=== PATIENT | male | born 1980 | race Caucasian/White ===

== ENCOUNTER 2019-08-08 13:14 | Inpatient (IN) ==
[2019-08-08] MEDS ORDERED: ENOXAPARIN 100 MG/ML SYRINGE SUBCUT STA (13:53)
[2019-08-08] MEDS ORDERED: NITROGLYCERIN SL 0.4 MG TABLET SL PRN (13:53)
[2019-08-08] MEDS ORDERED: MORPHINE 4 MG/1 ML VIAL IV STA (13:53)
[2019-08-08] MEDS ORDERED: ASPIRIN 325 MG TABLET PO STA (13:53)
[2019-08-08] MEDS ORDERED: DILTIAZEM 50 MG/10 ML VIAL IV STA (13:54)
[2019-08-08 14:00] LABS: Basophils # 0.1 10*3/uL (0.0-0.2); Eosinophils # 0.3 10*3/uL (0.0-0.87); Eosinophils % 2.8 % (0.00-10.9); Hematocrit 36.6 VOL% (42.0-52.0); Hemoglobin 12.3 GM/DL (14.0-18.0); Immature Granulocytes % 0.3 %; Immature Granulocytes Absolute 0.03 #; Lymphocytes # 1.4 10*3/uL (1.4-4.0); Lymphocytes % 14.5 % (21.2-54.2); Mean Corpuscular HGB Conc 33.6 GM/DL (32-36); Mean Corpuscular Volume 90.1 FL (87-102); Mean Platelet Volume 11.3 FL (9.6-12.0); Neutrophils % 74.4 % (38.7-73.9); Platelet Count 251 T/CUMM (130-400); Red Blood Count 4.06 MC/CUMM (3.8-5.5); Red Cell Distribution Width 13.2 % (9.3-17.3); White Blood Count 9.3 T/CUMM (4-12)
[2019-08-08 14:11] LABS: Calcium 8.1 MG/DL (8.5-10.1); Osmolality,Calculated 280.4 MOS/KG (273-304)
[2019-08-08 14:25] LABS: INR 1.1; PT Patient Result 11.2 SECS (9.8-11.9); Partial Thromboplastin Time 27.4 SECS (23.9-33.8)
[2019-08-08 15:33] LABS: Barbiturates Screen,Urine Negative (Negative); Benzodiazepines Screen,Urine Negative (Negative); Cannabinoid Screen,Urine Negative (Negative); Opiate Screen,Urine Negative (Negative); Phencyclidine Screen,Urine Negative (Negative)
[2019-08-08] MEDS ORDERED: ACETAMINOPHEN 325 MG TABLET PO PRN (15:44)
[2019-08-08] MEDS ORDERED: ONDANSETRON 4 MG/2 ML VIAL IV PRN (15:44)
[2019-08-08] MEDS ORDERED: DEXTROSE 10% 250 ML BAG IV PRN (15:44)
[2019-08-08] MEDS ORDERED: GLUCAGON 1 MG VIAL IM PRN (15:44)
[2019-08-08] MEDS ORDERED: MAGNESIUM SULF RIDER 2 GM in PREMIX 1 EACH IV PRN (15:47)
[2019-08-08] MEDS ORDERED: MAGNESIUM SULF RIDER 4 GM in PREMIX 1 EACH IV PRN (15:47)
[2019-08-08 16:59] LABS: Apearance,Urine CLEAR (Clear); Bilirubin,Urine Negative (Negative); Blood, Urine Negative (Negative); Glucose,Urine (UA) Negative (Negative); Hyaline Casts,Urine 11 /LPF (0-3); Ketones,Urine Negative (Negative); Mucus,Urine Moderate /LPF (Occasional); Nitrite,Urine Negative (Negative); Protein,Urine 30 MG/DL; RBC,Urine <1 /HPF (0-4); Squamous Epithelial Cell,Urine Occasional /HPF (0-10); WBC,Urine 4 /HPF (0-6)
[2019-08-08 17:00] LABS: Urine Color Yellow (Yellow)
[2019-08-08] MEDS ORDERED: MORPHINE 4 MG/1 ML VIAL IV PRN (20:44)
[2019-08-08] MEDS: METOPROLOL TARTRATE 25 MG TABLET PO SCH (20:54)
[2019-08-09 05:37] LABS: Basophils # 0.1 10*3/uL (0.0-0.2); Basophils % 0.8 % (0.0-0.8); Eosinophils # 0.3 10*3/uL (0.0-0.87); Eosinophils % 3.5 % (0.00-10.9); Hematocrit 38.5 VOL% (42.0-52.0); Hemoglobin 12.8 GM/DL (14.0-18.0); Immature Granulocytes % 0.3 %; Immature Granulocytes Absolute 0.03 #; Lymphocytes % 21.6 % (21.2-54.2); Mean Corpuscular HGB Conc 33.2 GM/DL (32-36); Mean Corpuscular Volume 88.9 FL (87-102); Mean Platelet Volume 11.8 FL (9.6-12.0); Monocytes % 8.5 % (1.7-12.7); Neutrophils % 65.3 % (38.7-73.9); Platelet Count 221 T/CUMM (130-400); Red Blood Count 4.33 MC/CUMM (3.8-5.5); Red Cell Distribution Width 13.3 % (9.3-17.3)
[2019-08-09 06:28] LABS: Calcium 8.3 MG/DL (8.5-10.1); Osmolality,Calculated 275.7 MOS/KG (273-304); Risk Ratio 2.23; VLDL CHOLESTEROL 9.2 MG/DL
[2019-08-09] MEDS: METOPROLOL TARTRATE 25 MG TABLET PO SCH ×2 (09:38→20:43)
[2019-08-09] MEDS: ASPIRIN EC 81 MG TABLET PO SCH (09:47)
[2019-08-09] MEDS: PANTOPRAZOLE 40 MG TABLET PO SCH (09:47)
[2019-08-09] MEDS: ENOXAPARIN 80 MG/0.8 ML SYRINGE SUBCUT SCH ×2 (09:48→20:43)
[2019-08-09] MEDS: FUROSEMIDE 40 MG/4 ML VIAL IV SCH (09:48)
[2019-08-09] MEDS: DIGOXIN 0.25 MG TABLET PO SCH (13:41)
[2019-08-09] MEDS ORDERED: DOCOSANOL 10% CREAM 2 GM TUBE TOP PRN (17:30)
[2019-08-09] MEDS: ATORVASTATIN 80 MG TABLET PO SCH (20:43)
[2019-08-09] MEDS ORDERED: ROSUVASTATIN 20 MG TABLET PO SCH (21:00)
[2019-08-10 07:59] LABS: Basophils # 0.1 10*3/uL (0.0-0.2); Basophils % 0.9 % (0.0-0.8); Eosinophils # 0.3 10*3/uL (0.0-0.87); Eosinophils % 2.8 % (0.00-10.9); Hematocrit 40.6 VOL% (42.0-52.0); Hemoglobin 13.4 GM/DL (14.0-18.0); Immature Granulocytes % 0.3 %; Immature Granulocytes Absolute 0.03 #; Lymphocytes # 1.9 10*3/uL (1.4-4.0); Lymphocytes % 19.5 % (21.2-54.2); Mean Corpuscular Volume 89.8 FL (87-102); Mean Platelet Volume 11.6 FL (9.6-12.0); Monocytes % 7.9 % (1.7-12.7); Neutrophils % 68.6 % (38.7-73.9); Platelet Count 255 T/CUMM (130-400); Red Blood Count 4.52 MC/CUMM (3.8-5.5); Red Cell Distribution Width 13.2 % (9.3-17.3); White Blood Count 9.6 T/CUMM (4-12)
[2019-08-10 08:19] LABS: Calcium 8.4 MG/DL (8.5-10.1); Osmolality,Calculated 278.5 MOS/KG (273-304)
[2019-08-10] MEDS: ENOXAPARIN 80 MG/0.8 ML SYRINGE SUBCUT SCH (08:25)
[2019-08-10] MEDS: PANTOPRAZOLE 40 MG TABLET PO SCH (08:25)
[2019-08-10] MEDS: ASPIRIN EC 81 MG TABLET PO SCH (08:25)
[2019-08-10] MEDS: METOPROLOL TARTRATE 25 MG TABLET PO SCH (08:26)
[2019-08-10] MEDS ORDERED: HEPARIN/NACL 0.9% 2 UNITS/ML 1,000 ML IV ONE (09:43)
[2019-08-10] MEDS ORDERED: LIDOCAINE 1% 20 ML VIAL ONE (09:43)
[2019-08-10] MEDS ORDERED: METOPROLOL TARTRATE 25 MG TABLET ONE (09:47)
[2019-08-10] MEDS ORDERED: POTASSIUM CHLORIDE RIDER 10 MEQ in PREMIX 1 EACH IV PRN (09:48)
[2019-08-10] MEDS ORDERED: DIAZEPAM 5 MG TABLET PO ONE (09:48)
[2019-08-10] MEDS ORDERED: diphenhydrAMINE CAP 25 MG CAPSULE PO ONE (09:48)
[2019-08-10] MEDS: METOPROLOL TARTRATE 50 MG TABLET PO SCH ×2 (09:54→21:44)
[2019-08-10] MEDS ORDERED: SODIUM CHLORIDE 0.9% 1,000 ML IV SCH (10:00)
[2019-08-10] MEDS ORDERED: MIDAZOLAM 2 MG/2 ML VIAL ONE ×2 (10:09→10:28)
[2019-08-10] MEDS ORDERED: fentaNYL 100 MCG/2 ML VIAL ONE (10:10)
[2019-08-10] MEDS: DIGOXIN 0.25 MG TABLET PO SCH (14:06)
[2019-08-10] MEDS: FUROSEMIDE 40 MG/4 ML VIAL IV SCH (14:21)
[2019-08-10] MEDS: ATORVASTATIN 80 MG TABLET PO SCH (21:44)
[2019-08-11 05:37] LABS: Basophils # 0.1 10*3/uL (0.0-0.2); Eosinophils # 0.3 10*3/uL (0.0-0.87); Eosinophils % 3.2 % (0.00-10.9); Hematocrit 41.1 VOL% (42.0-52.0); Hemoglobin 13.4 GM/DL (14.0-18.0); Immature Granulocytes % 0.3 %; Immature Granulocytes Absolute 0.03 #; Lymphocytes % 20.4 % (21.2-54.2); Mean Corpuscular HGB Conc 32.6 GM/DL (32-36); Mean Corpuscular Volume 90.7 FL (87-102); Mean Platelet Volume 11.7 FL (9.6-12.0); Neutrophils % 68.1 % (38.7-73.9); Platelet Count 255 T/CUMM (130-400); Red Blood Count 4.53 MC/CUMM (3.8-5.5); Red Cell Distribution Width 13.2 % (9.3-17.3)
[2019-08-11 06:00] LABS: Calcium 8.3 MG/DL (8.5-10.1); Osmolality,Calculated 281.5 MOS/KG (273-304)
[2019-08-11] MEDS ORDERED: POTASSIUM CHLORIDE 20 MEQ TABLET PO PRN (07:13)
[2019-08-11] MEDS: PANTOPRAZOLE 40 MG TABLET PO SCH (08:48)
[2019-08-11] MEDS: METOPROLOL TARTRATE 50 MG TABLET PO SCH (08:48)
[2019-08-11] MEDS ORDERED: APIXABAN 5 MG TABLET PO SCH (09:00)
[2019-08-11] MEDS ORDERED: SACUBITRIL/VALSARTAN 49-51 MG TABLET PO SCH (09:00)
[2019-08-11] MEDS ORDERED: ASPIRIN EC 81 MG TABLET PO SCH (09:00)
[2019-08-11] MEDS ORDERED: FUROSEMIDE 40 MG TABLET PO SCH (09:00)
[2019-08-11 12:10] VITALS: BP 111/58
== END 2019-08-11 13:30 | disposition home or self-care (01) | DRG 281 ==
LOC: EDUNIT# → N.ED 13:14 → N.EDINP 15:44 → SUATTDRO 15:44 → N.EDINP 17:16 → N.TELES 17:56
PROVIDERS: ADMIT Internal Medicine; ATTEND Internal Medicine Geriatric Medicine
PROC: CLCCHCL (ICD-10-PCS; 2019-08-10 10:15)